=== PATIENT | female | born 1980 | race Two or more races ===

== ENCOUNTER 2021-06-26 09:14 | Outpatient (CLI) | payer OTHER | END 2021-06-26 09:16 | disposition home or self-care (01) | LOC: SONOGRAMA 09:14 | PROVIDERS: ATTEND Pathology Anatomic Pathology & Clinical Pathology | DX: E04.1 Nontoxic single thyroid nodule (principal) ==

== ENCOUNTER 2025-01-01 10:43 | Outpatient (CLI) | payer OTHER | END 2025-01-01 10:49 | disposition home or self-care (01) | LOC: SONOGRAMA 10:43 | PROVIDERS: ATTEND Pathology Anatomic Pathology & Clinical Pathology | DX: D34 Benign neoplasm of thyroid gland (principal); E07.89 Other specified disorders of thyroid; E04.2 Nontoxic multinodular goiter ==